=== PATIENT | male | born 1955 | race Hispanic/Latino ===

== ENCOUNTER 2018-01-10 18:29 | Inpatient (IN) | payer MEDICARE ==
[~2018-01-10] VITALS: Ht 170.2 cm; Wt 99.8 kg
[2018-01-10 00:10] VITALS: BP 135/72
[~2018-01-10 18:29] MED LIST: CYCL10TA7 PO; FURO40TA5 PO; LISI-613 PO
[2018-01-10] MEDS ORDERED: MAG HYDROX/AL HYDROX/SIMETH ES 30 ML SUSP UDCUP PO PRN (19:00)
[2018-01-10] MEDS ORDERED: ZOLPIDEM TARTRATE 5 MG TAB PO PRN (19:00)
[2018-01-10] MEDS ORDERED: POTASSIUM CHLORIDE 20 MEQ ERTAB PO PRN (19:00)
[2018-01-10] MEDS ORDERED: POTASSIUM CHLORIDE 10% ELIXIR 20 MEQ/15 ML UDCUP PO PRN (19:00)
[2018-01-10] MEDS ORDERED: GLUCAGON 1MG KIT 1 MG ML IM PRN (19:00)
[2018-01-10] MEDS ORDERED: DiphenhydrAMINE HCL 50 MG/ML VIAL IVP PRN (19:00)
[2018-01-10] MEDS ORDERED: ONDANSETRON HCL 4 MG/2 ML VIAL IVP PRN (19:00)
[2018-01-10] MEDS ORDERED: NITROGLYCERIN 0.4 MG SL TAB SL PRN (19:00)
[2018-01-10] MEDS ORDERED: DEXTROSE 50%-WATER 50 ML DISP.SYRIN IV PRN (19:00)
[2018-01-10] MEDS ORDERED: ACETAMINOPHEN 325 MG TAB PO PRN (19:00)
[2018-01-10] MEDS ORDERED: CLONIDINE HCL 0.1 MG TABLET PO PRN (19:00)
[2018-01-10] MEDS ORDERED: DIPHENHYDRAMINE HCL 25 MG CAPSULE PO PRN (19:00)
[2018-01-10] MEDS ORDERED: POTASSIUM CHLORIDE 20MEQ/100ML 100 ML IV PRN (19:00)
[2018-01-10] MEDS ORDERED: LIDOCAINE HCL-MPF 1% 2ML VIAL IJ PRN (19:00)
[2018-01-10] MEDS ORDERED: MORPHINE SULFATE 5 MG/ML VIAL IVP PRN (19:00)
[2018-01-10 22:00] VITALS: BP 135/77
[2018-01-10 22:03] LABS: MEAN CORPUSCULAR HEMOGLOBIN 30.3 pg (27.0-33.0); MEAN CORPUSCULAR HGB CONC 33.3 g/dL (32.0-36.0); MEAN CORPUSCULAR VOLUME 91.1 fL (79-99); PLATELET COUNT (AUTO) 126 K/uL (130-400); RED BLOOD CELL COUNT(AUTO) 5.27 MIL/uL (4.50-6.20); RED CELL DISTRIBUTION WIDTH 13.7 % (11.0-15.5); WHITE BLOOD COUNT (AUTO) 5.9 K/uL (4.8-10.8)
[2018-01-10 22:08] LABS: APPEARANCE,URINE Clear (CLEAR); BILIRUBIN,URINE Negative (NEGATIVE); COLOR,URINE Yellow (YELLOW); GLUCOSE, URINE (UA) Negative (NEGATIVE); KETONES,URINE Negative (NEGATIVE); LEUKOCYTE ESTERASE ,URINE Negative (NEGATIVE); NITRATE,URINE Negative (NEGATIVE); OCCULT BLOOD,URINE Small (NEGATIVE); PH,URINE 6.5 (5.0-8.0); PROTEIN,URINE Negative (NEGATIVE)
[2018-01-10 22:15] LABS: BACTERIA,URINE Rare /HPF (None Seen); SQUAMOUS EPITHELIAL CELL,UR Rare /HPF (0-2); WBC,URINE 0-1 /HPF (0-1)
[2018-01-10 22:18] LABS: CREATININE 1.1 mg/dL (0.5-1.5)
[2018-01-10 22:23] LABS: ALBUMIN 3.6 g/dL (3.5-5.0); BILIRUBIN,TOTAL 0.5 mg/dL (0.2-1.0); TOTAL PROTEIN, SERUM 7.3 g/dL (6.0-8.3)
[2018-01-10] MEDS: ZOSYN 3.375GM+NS 50ML 50 ML IV SCH (23:17)
[2018-01-10] MEDS: SODIUM CHLORIDE 0.9% 1000ML 1,000 ML IV SCH (23:18)
[2018-01-10] MEDS: FAMOTIDINE 20MG TAB 20 MG TAB PO SCH (23:18)
[2018-01-10] MEDS: IPRATROPIUM/ALBUTEROL SULFATE 3 ML SOLUTION IH PRN (23:26)
[2018-01-10] MEDS: INSULIN R PO SSI SQ SCH (23:28)
[2018-01-11] MEDS: GUAIFENESIN-CODEINE 5 ML SYRUP PO PRN (03:17)
[2018-01-11] MEDS: IPRATROPIUM/ALBUTEROL SULFATE 3 ML SOLUTION IH PRN ×6 (04:10→21:09)
[2018-01-11 04:15] VITALS: BP 103/53
[2018-01-11] MEDS: SODIUM CHLORIDE 0.9% 1000ML 1,000 ML IV SCH ×2 (05:00→16:43)
[2018-01-11] MEDS: ZOSYN 3.375GM+NS 50ML 50 ML IV SCH ×3 (05:48→21:16)
[2018-01-11] MEDS: INSULIN R PO SSI SQ SCH ×4 (05:59→21:00)
[2018-01-11 08:00] VITALS: BP 123/78
[2018-01-11] MEDS ORDERED: DOCUSATE SODIUM 100 MG CAP PO PRN (08:45)
[2018-01-11] MEDS: FAMOTIDINE 20MG TAB 20 MG TAB PO SCH ×2 (09:18→21:16)
[2018-01-11] MEDS ORDERED: CYCL10TA7 PO (10:36)
[2018-01-11 12:00] VITALS: BP 152/68
[2018-01-11] MEDS: GUAIFENESIN SUGAR-FREE 100 MG/5 ML UDCUP PO PRN ×2 (14:52→21:16)
[2018-01-11 16:00] VITALS: BP 134/88
[2018-01-11 19:20] VITALS: BP 141/70
[2018-01-12] VITALS (7 sets, daily range): BP systolic 136–151; BP diastolic 71–86
[2018-01-12] MEDS: SODIUM CHLORIDE 0.9% 1000ML 1,000 ML IV SCH (01:00)
[2018-01-12] MEDS: IPRATROPIUM/ALBUTEROL SULFATE 3 ML SOLUTION IH PRN ×6 (01:15→21:41)
[2018-01-12] MEDS: ZOSYN 3.375GM+NS 50ML 50 ML IV SCH ×3 (03:45→20:31)
[2018-01-12] MEDS: GUAIFENESIN-CODEINE 5 ML SYRUP PO PRN (03:47)
[2018-01-12] MEDS: ACETAMINOPHEN 325 MG TAB PO PRN (03:47)
[2018-01-12 04:00] LABS: HEMATOCRIT 43.3 % (42-54); MEAN CORPUSCULAR HEMOGLOBIN 30.6 pg (27.0-33.0); MEAN CORPUSCULAR HGB CONC 33.5 g/dL (32.0-36.0); MEAN CORPUSCULAR VOLUME 91.4 fL (79-99); PLATELET COUNT (AUTO) 112 K/uL (130-400); RED BLOOD CELL COUNT(AUTO) 4.74 MIL/uL (4.50-6.20); RED CELL DISTRIBUTION WIDTH 13.9 % (11.0-15.5)
[2018-01-12 04:16] LABS: POTASSIUM 3.7 mmol/L (3.5-5.1)
[2018-01-12] MEDS: INSULIN R PO SSI SQ SCH ×4 (06:27→20:31)
[2018-01-12] MEDS: CYCLOBENZAPRINE HCL 10 MG TABLET PO SCH (08:19)
[2018-01-12] MEDS: FUROSEMIDE 20 MG TABLET PO SCH (08:20)
[2018-01-12] MEDS: FAMOTIDINE 20MG TAB 20 MG TAB PO SCH ×2 (08:20→20:31)
[2018-01-12] MEDS: LISINOPRIL 20 MG TABLET PO SCH (08:20)
[2018-01-13] MEDS: GUAIFENESIN-CODEINE 5 ML SYRUP PO PRN ×2 (01:40→06:11)
[2018-01-13] MEDS: IPRATROPIUM/ALBUTEROL SULFATE 3 ML SOLUTION IH PRN ×4 (01:55→14:11)
[2018-01-13 03:00] VITALS: BP 141/79
[2018-01-13] MEDS: ZOSYN 3.375GM+NS 50ML 50 ML IV SCH ×3 (05:03→20:15)
[2018-01-13] MEDS: INSULIN R PO SSI SQ SCH ×4 (06:11→20:19)
[2018-01-13 08:00] VITALS: BP 143/68
[2018-01-13] MEDS: LISINOPRIL 20 MG TABLET PO SCH (08:03)
[2018-01-13] MEDS: FAMOTIDINE 20MG TAB 20 MG TAB PO SCH ×2 (08:03→20:15)
[2018-01-13] MEDS: CYCLOBENZAPRINE HCL 10 MG TABLET PO SCH (08:03)
[2018-01-13] MEDS: FUROSEMIDE 20 MG TABLET PO SCH (08:03)
[2018-01-13] MEDS: GUAIFENESIN SUGAR-FREE 100 MG/5 ML UDCUP PO PRN ×2 (08:08→17:15)
[2018-01-13] MEDS: LACTULOSE 20 GM/30 ML UDCUP PO PRN ×2 (11:09→17:15)
[2018-01-13 12:00] VITALS: BP 149/86
[2018-01-13] MEDS ORDERED: METHYLPREDNISOLONE SOD SUCC 40MG/ML 1ML IVP SCH (14:45)
[2018-01-13 15:41] VITALS: BP 133/83
[2018-01-13] MEDS ORDERED: METHYLPREDNISOLONE SOD SUCC 40MG/ML 1ML ONE (16:18)
[2018-01-13] MEDS: IPRATROPIUM/ALBUTEROL SULFATE 3 ML SOLUTION IH SCH ×2 (18:45→23:49)
[2018-01-13 19:00] VITALS: BP 140/77
[2018-01-13 23:00] VITALS: BP 128/75
[2018-01-14 03:00] VITALS: BP 141/89
[2018-01-14] MEDS: GUAIFENESIN-CODEINE 5 ML SYRUP PO PRN (03:34)
[2018-01-14] MEDS: ZOSYN 3.375GM+NS 50ML 50 ML IV SCH ×2 (05:14→13:07)
[2018-01-14] MEDS: INSULIN R PO SSI SQ SCH ×2 (05:22→11:30)
[2018-01-14] MEDS: IPRATROPIUM/ALBUTEROL SULFATE 3 ML SOLUTION IH SCH ×2 (06:24→11:15)
[2018-01-14 07:56] VITALS: BP 128/76
[2018-01-14] MEDS: CYCLOBENZAPRINE HCL 10 MG TABLET PO SCH (10:10)
[2018-01-14] MEDS: LISINOPRIL 20 MG TABLET PO SCH (10:10)
[2018-01-14] MEDS: FUROSEMIDE 20 MG TABLET PO SCH (10:10)
[2018-01-14] MEDS: FAMOTIDINE 20MG TAB 20 MG TAB PO SCH (10:10)
[2018-01-14] MEDS: ACETAMINOPHEN 325 MG TAB PO PRN (10:17)
[2018-01-14 11:40] VITALS: BP 141/100
== END 2018-01-14 14:53 | disposition home or self-care (01) | DRG 190 ==
LOC: EDH 18:29 → 3BH 18:30
PROVIDERS: ADMIT Family Medicine; ATTEND Family Medicine
DX: J44.0 Chronic obstructive pulmonary disease with (acute) lower respiratory infection (principal); J18.9 Pneumonia, unspecified organism; N39.0 Urinary tract infection, site not specified; I50.9 Heart failure, unspecified; I25.10 Atherosclerotic heart disease of native coronary artery without angina pectoris; E66.9 Obesity, unspecified; F17.210 Nicotine dependence, cigarettes, uncomplicated; I11.0 Hypertensive heart disease with heart failure; Z68.34 Body mass index [BMI] 34.0-34.9, adult; Z88.8 Allergy status to other drugs, medicaments and biological substances; Z86.718 Personal history of other venous thrombosis and embolism; Z86.73 Personal history of transient ischemic attack (TIA), and cerebral infarction without residual deficits
CPT/HCPCS: 36415; 71250; 80048; 80053; 81001; 82948; 85027; 87088; 94640; 94664; J2270; J2543; J2920; J7030

== ENCOUNTER → 2018-07-20 | Outpatient (CLI) | payer MEDICARE ==
[~2018-07-20] MED LIST changes: -CYCL10TA7 PO; +MELO-108 PO; +TYL3 PO
== END | disposition home or self-care (01) ==
LOC: RAH 13:00
PROVIDERS: ATTEND Family Medicine
DX: M79.604 Pain in right leg (principal)
CPT/HCPCS: 93971

== ENCOUNTER 2018-08-25 15:50 | Inpatient (IN) | payer MEDICARE ==
[~2018-08-25] VITALS: Ht 170.2 cm; Wt 100.2 kg
[2018-08-25 16:34] VITALS: BP 143/71
[2018-08-25 16:40] LABS: BASOPHILS % (AUTO) 0.6 % (0.0-5.0); EOSINOPHILS % (AUTO) 0.9 % (0.0-8.0); HEMATOCRIT 48.3 % (42-54); LYMPHOCYTES % (AUTO) 22.1 % (21.0-51.0); MEAN CORPUSCULAR HEMOGLOBIN 31.9 pg (27.0-33.0); MEAN CORPUSCULAR HGB CONC 34.6 g/dL (32.0-36.0); MEAN CORPUSCULAR VOLUME 92.2 fL (79-99); MONOCYTES % (AUTO) 7.1 % (3.0-13.0); NEUTROPHILS % (AUTO) 69.3 % (40.0-77.0); NUCLEATED RED BLOOD CELLS 0.1 % (0.0-0.19); PLATELET COUNT (AUTO) 119 K/uL (130-400); RED BLOOD CELL COUNT(AUTO) 5.23 MIL/uL (4.50-6.20); RED CELL DISTRIBUTION WIDTH 13.4 % (11.0-15.5); WHITE BLOOD COUNT (AUTO) 6.4 K/uL (4.8-10.8)
[2018-08-25 16:50] LABS: CREATININE 1.1 mg/dL (0.5-1.5); POTASSIUM 3.9 mmol/L (3.5-5.1)
[2018-08-25 16:55] LABS: ALBUMIN 3.6 g/dL (3.5-5.0); BILIRUBIN,TOTAL 0.5 mg/dL (0.2-1.0); TOTAL PROTEIN, SERUM 7.3 g/dL (6.0-8.3)
[2018-08-25] MEDS ORDERED: LACTULOSE 20 GM/30 ML UDCUP PO PRN (18:00)
[2018-08-25] MEDS ORDERED: POTASSIUM CHLORIDE 10% ELIXIR 20 MEQ/15 ML UDCUP PO PRN (18:00)
[2018-08-25] MEDS ORDERED: LIDOCAINE HCL-MPF 1% 2ML VIAL IJ PRN (18:00)
[2018-08-25] MEDS ORDERED: DIPHENHYDRAMINE HCL 25 MG CAPSULE PO PRN (18:00)
[2018-08-25] MEDS ORDERED: NITROGLYCERIN 0.4 MG SL TAB SL PRN (18:00)
[2018-08-25] MEDS ORDERED: ACETAMINOPHEN-CODEINE 300/30MG TAB PO PRN (18:00)
[2018-08-25] MEDS ORDERED: POTASSIUM CHLORIDE 20MEQ/100ML 100 ML IV PRN (18:00)
[2018-08-25] MEDS ORDERED: MAG HYDROX/AL HYDROX/SIMETH ES 30 ML SUSP UDCUP PO PRN (18:00)
[2018-08-25] MEDS ORDERED: POTASSIUM CHLORIDE 20 MEQ ERTAB PO PRN (18:00)
[2018-08-25] MEDS ORDERED: ONDANSETRON HCL 4 MG/2 ML VIAL IVP PRN (18:00)
[2018-08-25] MEDS ORDERED: CLONIDINE HCL 0.1 MG TABLET PO PRN (18:00)
[2018-08-25] MEDS ORDERED: ACETAMINOPHEN 325 MG TAB PO PRN ×2 (18:00)
[2018-08-25] MEDS ORDERED: DiphenhydrAMINE HCL 50 MG/ML VIAL IVP PRN (18:00)
[2018-08-25] MEDS ORDERED: ZOLPIDEM TARTRATE 5 MG TAB PO PRN (18:00)
[2018-08-25] MEDS ORDERED: SODIUM CHLORIDE 0.9% 10 ML VIAL IVP PRN (18:15)
[2018-08-25] MEDS: SODIUM CHLORIDE 0.9% 1000ML 1,000 ML IV SCH (18:27)
[2018-08-25] MEDS: CEFTRIAXONE SODIUM 1 GM IVP SCH (18:27)
[2018-08-25] MEDS: IPRATROPIUM/ALBUTEROL SULFATE 3 ML SOLUTION IH SCH ×2 (18:33→21:30)
[2018-08-25 19:05] VITALS: BP 152/62
[2018-08-25] MEDS: FAMOTIDINE 20MG TAB 20 MG TAB PO SCH (21:14)
[2018-08-25] MEDS: AZITHROMYCIN 500MG+NS 250ML 250 ML IV SCH (21:15)
[2018-08-25 23:05] VITALS: BP 144/80
[2018-08-26] MEDS: IPRATROPIUM/ALBUTEROL SULFATE 3 ML SOLUTION IH SCH ×6 (01:45→21:03)
[2018-08-26 03:10] VITALS: BP 129/66
[2018-08-26] MEDS: SODIUM CHLORIDE 0.9% 1000ML 1,000 ML IV SCH (06:45)
[2018-08-26 07:00] VITALS: BP 134/69
[2018-08-26] MEDS ORDERED: DOCUSATE SODIUM 100 MG CAP PO PRN (08:45)
[2018-08-26] MEDS: FAMOTIDINE 20MG TAB 20 MG TAB PO SCH ×2 (09:37→19:44)
[2018-08-26] MEDS: METHYLPREDNISOLONE SOD SUCC 125MG/2ML VIAL IVP SCH (09:37)
[2018-08-26 11:00] VITALS: BP 138/77
[2018-08-26] MEDS: GUAIFENESIN-DM 200/20 MG 10 ML PO PRN ×2 (13:06→19:12)
--- NOTE | 2018-08-26 13:43 | NUR ---
DCP CM met with pt discussed dc plans. Pt is independent prior to admission, lives at home with spouse. Pt has a provider 18hrs/wk, walker, cane, Oxygen equipments portable and stationary. Denies any other equipments/services. Pt feels safe to go back home, spouse able to assist with transportation and needs as necessary. DC plan to home once stable. CM to cont to follow up. Addendum: 08/26/18 at 1344 by LORENZO HEARN LVN CM Amended: Links added.
[2018-08-26 16:00] VITALS: BP 142/68
[2018-08-26] MEDS: CEFTRIAXONE SODIUM 1 GM IVP SCH (17:52)
[2018-08-26] MEDS: AZITHROMYCIN 500MG+NS 250ML 250 ML IV SCH (19:44)
[2018-08-26 20:21] VITALS: BP 140/68
[2018-08-26 23:30] VITALS: BP 135/72
[2018-08-27] MEDS: IPRATROPIUM/ALBUTEROL SULFATE 3 ML SOLUTION IH SCH ×3 (01:15→09:44)
[2018-08-27 04:13] VITALS: BP 136/62
[2018-08-27 05:03] LABS: HEMATOCRIT 44.1 % (42-54); MEAN CORPUSCULAR HEMOGLOBIN 31.6 pg (27.0-33.0); MEAN CORPUSCULAR HGB CONC 34.4 g/dL (32.0-36.0); MEAN CORPUSCULAR VOLUME 91.8 fL (79-99); NUCLEATED RED BLOOD CELLS 0.1 % (0.0-0.19); PLATELET COUNT (AUTO) 128 K/uL (130-400); RED BLOOD CELL COUNT(AUTO) 4.81 MIL/uL (4.50-6.20); RED CELL DISTRIBUTION WIDTH 13.2 % (11.0-15.5); WHITE BLOOD COUNT (AUTO) 12.3 K/uL (4.8-10.8)
[2018-08-27 05:35] LABS: POTASSIUM 4.3 mmol/L (3.5-5.1)
[2018-08-27 07:00] VITALS: BP 150/68
[2018-08-27] MEDS: FAMOTIDINE 20MG TAB 20 MG TAB PO SCH (09:26)
[2018-08-27] MEDS: METHYLPREDNISOLONE SOD SUCC 125MG/2ML VIAL IVP SCH (09:26)
[2018-08-27 11:00] VITALS: BP 129/77
[2018-08-27] MEDS ORDERED: AMOX-429 PO (11:31)
[2018-08-27] MEDS: CEFTRIAXONE SODIUM 1 GM IVP SCH (11:49)
--- NOTE | 2018-08-27 12:00 | NUR ---
Discharge instructions and RX given to the pt. Pt. to call when his ride is here.
== END 2018-08-27 12:25 | disposition home or self-care (01) | DRG 192 ==
LOC: EDH 15:50 → EDHIP 16:28 → 3BH 16:32
PROVIDERS: ADMIT Family Medicine; ATTEND Family Medicine
DX: J44.1 Chronic obstructive pulmonary disease with (acute) exacerbation (principal); I11.0 Hypertensive heart disease with heart failure; I25.10 Atherosclerotic heart disease of native coronary artery without angina pectoris; I50.9 Heart failure, unspecified; F17.200 Nicotine dependence, unspecified, uncomplicated; Z86.718 Personal history of other venous thrombosis and embolism; Z86.73 Personal history of transient ischemic attack (TIA), and cerebral infarction without residual deficits
CPT/HCPCS: 36415; 71046; 80048; 80053; 85025; 85027; 94640; 94664; A4218; G0378; J0456; J0696; J2930; J7030

== ENCOUNTER 2020-06-29 16:53 | Emergency (ER) | payer MEDICARE ==
[~2020-06-29 16:53] MED LIST changes: +CYCL10TA7 PO; -FURO40TA5 PO; +IPRA3AMP24 IH; -LISI-613 PO; +LISI20TA24 PO; -MELO-108 PO
[2020-06-29 17:36] LABS: BASOPHILS % (AUTO) 0.5 % (0.0-5.0); EOSINOPHILS % (AUTO) 1.6 % (0.0-8.0); LYMPHOCYTES % (AUTO) 37.1 % (21.0-51.0); MEAN CORPUSCULAR HEMOGLOBIN 31.1 pg (27.0-33.0); MEAN CORPUSCULAR HGB CONC 34.9 g/dL (32.0-36.0); MEAN CORPUSCULAR VOLUME 89.1 fL (79-99); MONOCYTES % (AUTO) 7.5 % (3.0-13.0); NEUTROPHILS % (AUTO) 52.2 % (40.0-77.0); PLATELET COUNT (AUTO) 158 K/uL (130-400); RED CELL DISTRIBUTION WIDTH 12.1 % (11.0-15.5); WHITE BLOOD COUNT (AUTO) 7.3 K/uL (4.8-10.8)
[2020-06-29 17:45] LABS: CREATININE 1.1 mg/dL (0.5-1.5); POTASSIUM 4.2 mmol/L (3.5-5.1)
[2020-06-29 17:46] LABS: INR 1.12 (0.85-1.15); PROTHROMBIN TIME 12.1 SEC (9.6-11.6)
[2020-06-29 17:47] LABS: PARTIAL THROMBOPLASTIN TIME 26.5 SEC (26.3-35.5)
[2020-06-29 17:50] LABS: ALBUMIN 3.7 g/dL (3.5-5.0); BILIRUBIN,TOTAL 0.5 mg/dL (0.2-1.0)
[2020-06-29 17:56] LABS: APPEARANCE,URINE Clear (CLEAR); BILIRUBIN,URINE Negative (NEGATIVE); COLOR,URINE Yellow (YELLOW); GLUCOSE, URINE (UA) 500 mg/dL (NEGATIVE); KETONES,URINE Negative (NEGATIVE); LEUKOCYTE ESTERASE ,URINE Negative (NEGATIVE); NITRATE,URINE Negative (NEGATIVE); OCCULT BLOOD,URINE Trace (NEGATIVE); PROTEIN,URINE Negative (NEGATIVE)
[2020-06-29 17:58] LABS: B-TYPE NATRIURETIC PEPTIDE < 5 pg/mL (0-100)
[2020-06-29 18:11] LABS: BACTERIA,URINE Rare /HPF (None Seen); RBC,URINE 0-1 /HPF (0-1); SQUAMOUS EPITHELIAL CELL,UR Rare /HPF (0-2); WBC,URINE 0-1 /HPF (0-1)
[2020-06-29] MEDS ORDERED: FUROSEMIDE 10 MG/ML 4ML VIAL ONE (20:52)
[2020-06-29 21:02] LABS: TOTAL PROTEIN, SERUM 7.1 g/dL (6.0-8.3)
== END 2020-06-29 21:43 | disposition home or self-care (01) ==
LOC: EDH 16:53
DX: I11.0 Hypertensive heart disease with heart failure (principal); I50.9 Heart failure, unspecified; R60.0 Localized edema; J44.9 Chronic obstructive pulmonary disease, unspecified; I25.10 Atherosclerotic heart disease of native coronary artery without angina pectoris; Z86.718 Personal history of other venous thrombosis and embolism; Z88.1 Allergy status to other antibiotic agents; Z88.8 Allergy status to other drugs, medicaments and biological substances; Z72.0 Tobacco use; Z86.73 Personal history of transient ischemic attack (TIA), and cerebral infarction without residual deficits
CPT/HCPCS: 36415; 71045; 80053; 81001; 82550; 83605 ×2; 83880; 84484; 85025; 85610; 85730; 93005; 96374; 99285; J1940

== ENCOUNTER 2020-07-26 13:49 | Inpatient (IN) | payer OTHER, MEDICARE ==
[~2020-07-26] VITALS: Ht 167.6 cm; Wt 109.1 kg
[~2020-07-26 13:49] MED LIST changes: +CYCL-309 PO; -CYCL10TA7 PO
[2020-07-26 14:25] LABS: BASOPHILS % (AUTO) 0.8 % (0.0-5.0); EOSINOPHILS % (AUTO) 1.2 % (0.0-8.0); HEMATOCRIT 42.8 % (42-54); LYMPHOCYTES % (AUTO) 34.9 % (21.0-51.0); MEAN CORPUSCULAR HGB CONC 34.8 g/dL (32.0-36.0); MEAN CORPUSCULAR VOLUME 89.2 fL (79-99); NEUTROPHILS % (AUTO) 53.2 % (40.0-77.0); PLATELET COUNT (AUTO) 140 K/uL (130-400); RED CELL DISTRIBUTION WIDTH 12.2 % (11.0-15.5); WHITE BLOOD COUNT (AUTO) 6.4 K/uL (4.8-10.8)
[2020-07-26 14:32] LABS: CREATININE 1.3 mg/dL (0.5-1.5); POTASSIUM 4.1 mmol/L (3.5-5.1)
[2020-07-26 14:38] LABS: ALBUMIN 3.5 g/dL (3.5-5.0); BILIRUBIN,TOTAL 0.5 mg/dL (0.2-1.0); TOTAL PROTEIN, SERUM 6.7 g/dL (6.0-8.3)
[2020-07-26 14:40] VITALS: BP 148/68
[2020-07-26] MEDS ORDERED: 0.9%NACL 10ML VIAL IVP PRN (14:45)
[2020-07-26 16:00] VITALS: BP 122/51
[2020-07-26] MEDS ORDERED: ZOLPIDEM TARTRATE 5 MG TAB PO PRN (16:15)
[2020-07-26] MEDS ORDERED: IPRATROPIUM/ALBUTEROL SULFATE 3 ML SOLUTION IH PRN (16:15)
[2020-07-26] MEDS ORDERED: LIDOCAINE HCL-MPF 1% 2ML VIAL IJ PRN (16:15)
[2020-07-26] MEDS ORDERED: KCL 20 MEQ ERTAB PO PRN (16:15)
[2020-07-26] MEDS ORDERED: ONDANSETRON 4MG INJ IVP PRN (16:15)
[2020-07-26] MEDS ORDERED: NITROGLYCERIN 0.4 MG SL TAB SL PRN (16:15)
[2020-07-26] MEDS ORDERED: GUAIFENESIN SUGAR-FREE 100 MG/5 ML UDCUP PO PRN (16:15)
[2020-07-26] MEDS ORDERED: DIPHENHYDRAMINE HCL 25 MG CAPSULE PO PRN (16:15)
[2020-07-26] MEDS ORDERED: ACETAMINOPHEN 325 MG TAB PO PRN ×2 (16:15)
[2020-07-26] MEDS ORDERED: DiphenhydrAMINE HCL 50 MG/ML VIAL IVP PRN (16:15)
[2020-07-26] MEDS ORDERED: CLONIDINE HCL 0.1 MG TABLET PO PRN (16:15)
[2020-07-26] MEDS ORDERED: PHARMACY COMMUNICATION MISC SCH ×2 (16:15→21:15)
[2020-07-26] MEDS ORDERED: POTASSIUM CHLORIDE 10% ELIXIR 20 MEQ/15 ML UDCUP PO PRN (16:15)
[2020-07-26] MEDS ORDERED: GUAIFENESIN-DM 200/20 MG 10 ML PO PRN (16:15)
[2020-07-26] MEDS ORDERED: LACTULOSE 20 GM/30 ML UDCUP PO PRN (16:15)
[2020-07-26] MEDS ORDERED: MAG/ALUM/SIMETH 30 ML UDCUP PO PRN (16:15)
[2020-07-26] MEDS ORDERED: POTASSIUM CHLORIDE 20MEQ/100ML 100 ML IV PRN (16:15)
[2020-07-26] MEDS ORDERED: SOLU-MEDROL 125MG VIAL IVP SCH ×2 (16:30→18:00)
[2020-07-26] MEDS ORDERED: ACETAMINOPHEN WITH CODEINE 1 TAB TAB PO PRN (16:30)
[2020-07-26] MEDS ORDERED: LABETALOL 20MG SYG IV PRN (16:45)
[2020-07-26] MEDS: IPRATROPIUM/ALBUTEROL SULFATE 3 ML SOLUTION IH SCH ×2 (16:49→22:11)
[2020-07-26] MEDS: DOXYCYCLINE 100MG+NS 250ML 250 ML IV SCH (18:24)
[2020-07-26 20:00] VITALS: BP 114/76
[2020-07-26] MEDS ORDERED: FAMOTIDINE 20MG TAB PO SCH (21:00)
[2020-07-26] MEDS: ZOSYN 3.375GM+NS 50ML 50 ML IV SCH (21:26)
[2020-07-26] MEDS: LACTULOSE 20 GM/30 ML UDCUP PO SCH (21:26)
[2020-07-26] MEDS: FAMOTIDINE 20MG TAB PO SCH (21:27)
[2020-07-27] VITALS: BP 145/69
[2020-07-27] MEDS: IPRATROPIUM/ALBUTEROL SULFATE 3 ML SOLUTION IH SCH ×6 (02:07→21:18)
[2020-07-27 04:00] VITALS: BP 158/58
[2020-07-27] MEDS: DOXYCYCLINE 100MG+NS 250ML 250 ML IV SCH ×2 (04:31→16:16)
[2020-07-27] MEDS: ZOSYN 3.375GM+NS 50ML 50 ML IV SCH ×3 (04:32→20:05)
[2020-07-27] MEDS ORDERED: ACET1TAB25 PO (05:55)
[2020-07-27] MEDS ORDERED: DOXY100T2 PO (05:55)
[2020-07-27] MEDS ORDERED: LISI20TA24 PO (05:55)
[2020-07-27 06:15] LABS: HEMATOCRIT 43.6 % (42-54); MEAN CORPUSCULAR HEMOGLOBIN 30.1 pg (27.0-33.0); MEAN CORPUSCULAR HGB CONC 33.7 g/dL (32.0-36.0); MEAN CORPUSCULAR VOLUME 89.3 fL (79-99); RED BLOOD CELL COUNT(AUTO) 4.88 MIL/uL (4.50-6.20)
[2020-07-27 06:38] LABS: CREATININE 1.5 mg/dL (0.5-1.5); POTASSIUM 4.9 mmol/L (3.5-5.1)
[2020-07-27 07:00] VITALS: BP 135/66
[2020-07-27] MEDS: FAMOTIDINE 20MG TAB PO SCH ×2 (09:27→20:03)
[2020-07-27] MEDS: LACTULOSE 20 GM/30 ML UDCUP PO SCH ×2 (09:27→20:02)
[2020-07-27] MEDS: LISINOPRIL 20 MG TABLET PO SCH (09:27)
[2020-07-27] MEDS: ENOXAPARIN SODIUM 40 MG/0.4 ML SYRINGE SQ SCH (09:28)
[2020-07-27 11:30] VITALS: BP 152/75
[2020-07-27 12:56] LABS: HEMOGLOBIN A1C 7.7 % (4.0-6.0)
[2020-07-27] MEDS: GUAIFENESIN-DM 200/20 MG 10 ML PO PRN ×2 (13:04→21:25)
[2020-07-27 16:00] VITALS: BP 109/51
[2020-07-27] MEDS ORDERED: SOLU-MEDROL 125MG VIAL IVP SCH (16:30)
[2020-07-27 20:08] VITALS: BP 136/70
[2020-07-27] MEDS: INSULIN HUMULIN R 100 UNIT/ML 3ML SQ SCH ×2 (21:14→21:32)
[2020-07-28 00:08] VITALS: BP 109/74
[2020-07-28] MEDS: IPRATROPIUM/ALBUTEROL SULFATE 3 ML SOLUTION IH SCH ×5 (01:58→23:43)
[2020-07-28] MEDS: DOXYCYCLINE 100MG+NS 250ML 250 ML IV SCH (04:03)
[2020-07-28] MEDS: ZOSYN 3.375GM+NS 50ML 50 ML IV SCH ×3 (04:04→19:29)
[2020-07-28 04:08] VITALS: BP 118/57
[2020-07-28 06:20] LABS: BASOPHILS % (AUTO) 0.1 % (0.0-5.0); HEMATOCRIT 39.9 % (42-54); LYMPHOCYTES % (AUTO) 9.5 % (21.0-51.0); MEAN CORPUSCULAR HGB CONC 35.1 g/dL (32.0-36.0); MEAN CORPUSCULAR VOLUME 88.5 fL (79-99); MONOCYTES % (AUTO) 4.3 % (3.0-13.0); NEUTROPHILS % (AUTO) 85.2 % (40.0-77.0); PLATELET COUNT (AUTO) 152 K/uL (130-400); RED BLOOD CELL COUNT(AUTO) 4.51 MIL/uL (4.50-6.20); RED CELL DISTRIBUTION WIDTH 12.3 % (11.0-15.5); WHITE BLOOD COUNT (AUTO) 15.1 K/uL (4.8-10.8)
[2020-07-28 06:31] LABS: CREATININE 1.3 mg/dL (0.5-1.5); POTASSIUM 4.3 mmol/L (3.5-5.1)
[2020-07-28] MEDS: INSULIN HUMULIN R 100 UNIT/ML 3ML SQ SCH ×3 (06:45→17:08)
[2020-07-28 08:00] VITALS: BP 134/63
[2020-07-28] MEDS: FAMOTIDINE 20MG TAB PO SCH ×2 (08:53→19:30)
[2020-07-28] MEDS: ENOXAPARIN SODIUM 40 MG/0.4 ML SYRINGE SQ SCH (08:53)
[2020-07-28] MEDS: LISINOPRIL 20 MG TABLET PO SCH (09:00)
[2020-07-28] MEDS: GUAIFENESIN-DM 200/20 MG 10 ML PO PRN (09:06)
[2020-07-28] MEDS: LACTULOSE 20 GM/30 ML UDCUP PO SCH ×2 (09:06→19:30)
[2020-07-28 12:00] VITALS: BP 132/66
[2020-07-28 16:00] VITALS: BP 132/73
[2020-07-28] MEDS ORDERED: SOLU-MEDROL 125MG VIAL IVP SCH (16:30)
[2020-07-28] MEDS: DOXYCYCLINE HYCLATE 100 MG TABLET PO SCH (16:56)
[2020-07-28] MEDS: ACETAMINOPHEN WITH CODEINE 1 TAB TAB PO PRN (18:11)
[2020-07-28] MEDS ORDERED: MORPHINE 4 MG SYG ONE (19:47)
[2020-07-28 20:15] VITALS: BP 126/69
[2020-07-28] MEDS ORDERED: MORPHINE 4 MG SYG IV ONE (21:05)
[2020-07-29 00:13] VITALS: BP 138/66
[2020-07-29] MEDS: ACETAMINOPHEN WITH CODEINE 1 TAB TAB PO PRN ×2 (01:02→09:53)
[2020-07-29] MEDS: ZOSYN 3.375GM+NS 50ML 50 ML IV SCH (04:07)
[2020-07-29 04:23] VITALS: BP 112/45
[2020-07-29] MEDS: INSULIN HUMULIN R 100 UNIT/ML 3ML SQ SCH (06:15)
[2020-07-29] MEDS: IPRATROPIUM/ALBUTEROL SULFATE 3 ML SOLUTION IH SCH (07:22)
[2020-07-29 07:51] VITALS: BP 135/70
[2020-07-29] MEDS: LACTULOSE 20 GM/30 ML UDCUP PO SCH (09:54)
[2020-07-29] MEDS: ENOXAPARIN SODIUM 40 MG/0.4 ML SYRINGE SQ SCH (09:55)
[2020-07-29] MEDS: LISINOPRIL 20 MG TABLET PO SCH (09:55)
[2020-07-29] MEDS: FAMOTIDINE 20MG TAB PO SCH (09:55)
[2020-07-29] MEDS: DOXYCYCLINE HYCLATE 100 MG TABLET PO SCH (09:55)
[2020-07-29] MEDS ORDERED: BUDE10.2 IH (11:10)
[2020-07-29] MEDS ORDERED: AMOX-429 PO (11:10)
[2020-07-29 11:11] VITALS: BP 148/77
[2020-07-30] MEDS ORDERED: PREDNISONE 20 MG TABLET PO SCH (09:00)
[2020-08-15] MEDS ORDERED: ONDA4TAB4 PO (00:01)
[2020-08-15] MEDS ORDERED: METR-172 PO (00:01)
== END 2020-07-29 12:30 | disposition home or self-care (01) | DRG 189 ==
LOC: EDH 13:49 → OBSVTOIN 13:50 → INTOOBSV 13:50 → EDHIP 13:50 → 3CH 14:46
PROVIDERS: ADMIT Family Medicine; ATTEND Family Medicine
DX: J96.00 Acute respiratory failure, unspecified whether with hypoxia or hypercapnia (principal); J44.1 Chronic obstructive pulmonary disease with (acute) exacerbation; E66.9 Obesity, unspecified; I11.0 Hypertensive heart disease with heart failure; E11.9 Type 2 diabetes mellitus without complications; I50.9 Heart failure, unspecified; I25.10 Atherosclerotic heart disease of native coronary artery without angina pectoris; Z20.822 Contact with and (suspected) exposure to COVID-19; Z82.49 Family history of ischemic heart disease and other diseases of the circulatory system; Z82.5 Family history of asthma and other chronic lower respiratory diseases; Z83.3 Family history of diabetes mellitus; Z88.1 Allergy status to other antibiotic agents; Z88.8 Allergy status to other drugs, medicaments and biological substances; Z86.73 Personal history of transient ischemic attack (TIA), and cerebral infarction without residual deficits; Z86.718 Personal history of other venous thrombosis and embolism; Z68.38 Body mass index [BMI] 38.0-38.9, adult; Z79.899 Other long term (current) drug therapy; Z79.84 Long term (current) use of oral hypoglycemic drugs
CPT/HCPCS: 36415; 71046; 80048; 80053; 82948; 83036; 83735; 85025; 85027; 85378; 87426; 93970; 94640; 94664; G0378; J1650; J1815; J2270; J2543; J2930; J3490; U0003

== ENCOUNTER 2022-07-21 20:01 | Emergency (ER) | payer OTHER, MEDICARE ==
[~2022-07-21 20:01] MED LIST changes: +AMOX-429 PO; -CYCL-309 PO; +METR-172 PO; +ONDA4TAB4 PO; -TYL3 PO
== END 2022-07-21 21:12 | disposition left against medical advice (07) ==
LOC: EDH 20:01
DX: M54.9 Dorsalgia, unspecified (principal); R06.02 Shortness of breath; Z53.21 Procedure and treatment not carried out due to patient leaving prior to being seen by health care provider

== ENCOUNTER 2023-02-10 18:03 | Emergency (ER) | payer OTHER, MEDICARE ==
[~2023-02-10] VITALS: Ht 167.6 cm; Wt 83.0 kg
[2023-02-10 18:48] LABS: HEMATOCRIT 46.6 % (42-54); MEAN CORPUSCULAR HEMOGLOBIN 31.5 pg (27.0-33.0); MEAN CORPUSCULAR HGB CONC 34.5 g/dL (32.0-36.0); MEAN CORPUSCULAR VOLUME 91.2 fL (79-99); RED BLOOD CELL COUNT(AUTO) 5.11 MIL/uL (4.50-6.20); RED CELL DISTRIBUTION WIDTH 12.9 % (11.0-15.5); WHITE BLOOD COUNT (AUTO) 7.1 K/uL (4.8-10.8)
[2023-02-10 18:51] LABS: APPEARANCE,URINE CLEAR (CLEAR); BILIRUBIN,URINE NEGATIVE (NEGATIVE); COLOR,URINE LIGHT-YELLOW (YELLOW); GLUCOSE, URINE (UA) NEGATIVE (NEGATIVE); KETONES,URINE NEGATIVE (NEGATIVE); LEUKOCYTE ESTERASE ,URINE NEGATIVE Leu/uL (NEGATIVE); NITRATE,URINE NEGATIVE (NEGATIVE); PH,URINE 6.5 (5.0-8.0); PROTEIN,URINE NEGATIVE (NEGATIVE); UROBILINOGEN,URINE 0.2 mg/dL (0.2-1.0)
[2023-02-10 19:07] LABS: ADD UA MICROSCOPIC YES
[2023-02-10 19:10] LABS: WBC,URINE 0-1 /HPF (0-1)
[2023-02-10] MEDS ORDERED: CEFU500T67 PO (21:37)
[2023-02-10] MEDS ORDERED: TAMS-1 PO (21:37)
[2023-02-10 22:20] VITALS: BP 143/63; PULSE 63; RESP 16; O2SAT 98
== END 2023-02-10 22:22 | disposition home or self-care (01) ==
LOC: EDH 18:03
DX: R30.0 Dysuria (principal); N34.2 Other urethritis; J44.9 Chronic obstructive pulmonary disease, unspecified; E11.9 Type 2 diabetes mellitus without complications; I10 Essential (primary) hypertension; Z79.899 Other long term (current) drug therapy; Z88.1 Allergy status to other antibiotic agents; Z88.6 Allergy status to analgesic agent; Z88.8 Allergy status to other drugs, medicaments and biological substances
CPT/HCPCS: 36415; 51701; 80048; 81001; 85027; 93005

== ENCOUNTER 2023-05-07 20:25 | Emergency (ER) | payer OTHER, MEDICARE ==
[~2023-05-07] VITALS: Ht 167.6 cm; Wt 83.9 kg
[~2023-05-07 20:25] MED LIST changes: +AEC81 PO; -AMOX-429 PO; +ATOR10 PO; +METF-444 PO; +METO25TA3 PO; -METR-172 PO; +TAMS-1 PO
[2023-05-07 22:02] LABS: APPEARANCE,URINE TURBID (CLEAR); BILIRUBIN,URINE NEGATIVE (NEGATIVE); COLOR,URINE LIGHT-ORANGE (YELLOW); GLUCOSE, URINE (UA) NEGATIVE (NEGATIVE); KETONES,URINE NEGATIVE (NEGATIVE); LEUKOCYTE ESTERASE ,URINE 500 Leu/uL (NEGATIVE); NITRATE,URINE 2+ (NEGATIVE); OCCULT BLOOD,URINE LARGE (NEGATIVE); PH,URINE 5.5 (5.0-8.0); PROTEIN,URINE 50 mg/dL (NEGATIVE); UROBILINOGEN,URINE 0.2 mg/dL (0.2-1.0)
[2023-05-07 22:02] LABS: BASOPHILS # (AUTO) 0.05 K/uL (0.00-0.20); BASOPHILS % (AUTO) 0.7 % (0.0-5.0); EOSINOPHILS # (AUTO) 0.04 K/uL (0.00-0.70); EOSINOPHILS % (AUTO) 0.6 % (0.0-8.0); HEMATOCRIT 46.3 % (42-54); IMMATURE GRANULOCYTE ABSOLUTE 0.03 K/uL (0-1); LYMPHOCYTES # (AUTO) 1.5 K/uL (1.0-4.8); LYMPHOCYTES % (AUTO) 21.4 % (21.0-51.0); MEAN CORPUSCULAR HEMOGLOBIN 30.7 pg (27.0-33.0); MEAN CORPUSCULAR HGB CONC 33.9 g/dL (32.0-36.0); MEAN CORPUSCULAR VOLUME 90.6 fL (79-99); MONOCYTES # (AUTO) 0.4 K/uL (0.1-1.0); MONOCYTES % (AUTO) 6.3 % (3.0-13.0); NEUTROPHILS # (AUTO) 4.8 K/uL (1.8-7.7); NEUTROPHILS % (AUTO) 70.6 % (40.0-77.0); PLATELET COUNT (AUTO) 195 K/uL (130-400); RED BLOOD CELL COUNT(AUTO) 5.11 MIL/uL (4.50-6.20); RED CELL DISTRIBUTION WIDTH 12.7 % (11.0-15.5); WHITE BLOOD COUNT (AUTO) 6.8 K/uL (4.8-10.8)
[2023-05-07 22:03] LABS: ADD UA MICROSCOPIC YES
[2023-05-07 22:07] LABS: BACTERIA,URINE MOD /HPF (None Seen); MUCUS,URINE RARE LPF (None Seen); RBC,URINE TNTC /HPF (0-1); WBC CLUMP FEW /HPF (0-1); WBC,URINE TNTC /HPF (0-1)
[2023-05-07 22:21] LABS: POTASSIUM 4.7 mmol/L (3.5-5.1)
[2023-05-07 22:26] LABS: ALBUMIN 3.6 g/dL (3.5-5.0); BILIRUBIN,TOTAL 0.4 mg/dL (0.2-1.0); TOTAL PROTEIN, SERUM 7.5 g/dL (6.0-8.3)
[2023-05-07] MEDS ORDERED: CEFTRIAXONE 1G VIAL IM ONE (22:30)
[2023-05-07] MEDS ORDERED: SULF1TAB89 PO (22:38)
[2023-05-07 23:11] VITALS: BP 128/62; PULSE 66; RESP 16; O2SAT 99
== END 2023-05-07 23:15 | disposition home or self-care (01) ==
LOC: EDH 20:25
DX: N39.0 Urinary tract infection, site not specified (principal); I10 Essential (primary) hypertension; E11.9 Type 2 diabetes mellitus without complications; J44.9 Chronic obstructive pulmonary disease, unspecified; Z79.82 Long term (current) use of aspirin; Z79.84 Long term (current) use of oral hypoglycemic drugs; Z79.899 Other long term (current) drug therapy; Z98.890 Other specified postprocedural states; Z88.8 Allergy status to other drugs, medicaments and biological substances
CPT/HCPCS: 99283; 80053; 85025; 87077; 87088; 87186; 81001; 36415; 96372; J0696